=== PATIENT | male | born 1965 | race Caucasian/White ===

== ENCOUNTER 2018-02-26 02:20 | Observation (INO) | payer MEDICAID ==
[~2018-02-26] VITALS: Ht 190.5 cm; Wt 101.6 kg
--- NOTE | ~2018-02-26 | CN ---
PATIENT NAME:VIKTOR CLARKE JR MEDICAL RECORD: [id number] : 61 LOCATION:. D.2125 ADMIT DATE: 02/26/18 ACCOUNT: [id number] CONSULTING PHYSICIAN: DANIELLE BARNETT MD REFERRING PHYSICIAN: AGUSTINA WEATHERS MD DATE OF CONSULTATION: 02/26/2018 HISTORY OF PRESENT ILLNESS: A 52-year-old with a history of hypertension, apparently family history of coronary artery disease, presented to the ER with chest pain, shortness of breath, palpitations, started about 3 hours prior to admission. He drank a bottle of water that he felt might be tainted with drugs from his roommate, was positive for amphetamine in the ER. Cardiac enzymes are negative. Additionally, hypernatremic, hypokalemic. Enzymes continued to elevate. We are asked to see him concerning his cardiovascular status. PAST MEDICAL HISTORY: Includes: 1. History of hypertension. 2. Methamphetamine abuse. SOCIAL HISTORY: Denies current methamphetamine use. Smokes about a pack a day, fairly frequent alcohol. REVIEW OF SYSTEMS: The patient reports easy bruising but reports no swollen glands. The patient reports no fever, no night sweats, no significant weight gain, no significant weight loss. No significant exercise tolerance. The patient reports no dry eyes, no irritation, no vision change. Patient reports no difficulty hearing and no ear pain. Patient reports no frequent nose bleeds or nose and sinus problems. Patient reports on arm pain on exertion. No shortness of breath while lying down. No history of heart murmur. Patient reports no cough, no wheezing or coughing up blood. Patient reports no abdominal pain, no vomiting. Normal appetite. No diarrhea and not vomiting blood. No nausea and no constipation. Patient reports no incontinence. No difficulty urinating. No hematuria. No increased frequency. Patient reports no muscle aches. No weakness, no arthralgias, no back pain. No swelling of the extremities. Patient reports no abnormal mole, no jaundice, no rashes. Reports no loss of consciousness. No weakness and no numbness. No seizures, dizziness, or headaches. The patient reports no depression, no sleep disturbance, feeling safe in a relationship and no alcohol abuse. Patient reports on fatigue. Reports no runny nose or sinus pressure. No itching, no hives, and no frequent sneezing. ALLERGIES: None known. PHYSICAL EXAMINATION: GENERAL: Somewhat anxious appearing middle-aged gentleman. VITAL SIGNS: Pulse 128, blood pressure 154/99. HEENT: Normocephalic, atraumatic. NECK: No bruits noted. HEART: Tachycardic, regular, II/ systolic ejection murmur. LUNGS: Fairly good air excursion. ABDOMEN: Soft, nontender. EXTREMITIES: Pulses are 1+. There is no edema. IMPRESSION: Non-ST elevation myocardial infarction may be secondary to methamphetamine use. Given is hyperdynamic state, we will use beta blockers CONSULT REPORT [id number] VIKTOR CLARKE JR cautiously, benzodiazepines. PLAN: Angiography, intervention based on results, obviously would use a non-medicated hardware if indicated due to questionable compliance issues. TRANSINT:[id number] Voice Confirmation ID: [id number] DOCUMENT ID: [id number] DANIELLE BARNETT MD at 0829 CC: [id number] DICTATION DATE: 02/26/18 1052 SERVICER: 02/26/18 1310 DIS IN 02/26/18 [id number] [place] [address]
[2018-02-26] MEDS ORDERED: SINEQUAN100 MG PO (02:24)
[2018-02-26] MEDS ORDERED: MOBIC7.5 MG (02:24)
[2018-02-26] MEDS ORDERED: PRINIVIL10 MG (02:24)
[2018-02-26 02:49] LABS: BASOPHILS 0.3 % (0-2); EOSINOPHILS 0.1 % (0-7); HEMATOCRIT 39.7 % (42.0-54.0); HEMOGLOBIN 13.9 g/dL (13.5-17.5); IMMATURE GRANULOCYTES 0.2 % (0-5); LYMPHOCYTES 7.4 % (15-50); MCH 31.2 pg (26.0-34.0); MEAN PLATELET VOLUME 8.7 fL (7.4-10.4); MONOCYTES 6.2 % (2-11); NEUTROPHILS 85.8 % (40-80); PLATELET COUNT 300 10x3/uL (130-400); RBC 4.46 10x6/uL (4.20-6.10); RDW 13.3 % (11.5-14.5); WBC 14.6 10x3/uL (4.8-10.8)
[2018-02-26 02:58] LABS: ALBUMIN 4.2 g/dL (3.4-5.0); ALKALINE PHOSPHATASE 76 U/L (46-116); ALT (SGPT) 22 U/L (10-68); BILIRUBIN - TOTAL 0.37 mg/dL (0.2-1.3); CALC OSMOLALITY 287 mosm/kg (275-300); CALCIUM 8.6 mg/dL (8.5-10.1); CARBON DIOXIDE 23.6 mmol/L (21.0-32.0); CHLORIDE - SERUM 106 mmol/L (98-107); CREATININE - SERUM 1.5 mg/dL (0.6-1.3); GLUCOSE 135 mg/dL (74-106); POTASSIUM - SERUM 3.2 mmol/L (3.5-5.1); PROTEIN - SERUM 8.2 g/dL (6.4-8.2); SODIUM 142 mmol/L (136-145); UREA NITROGEN 21 mg/dL (7-18); eGFR NON AFRICAN AMERICAN 52 mL/min (90-120)
[2018-02-26 03:04] LABS: APPEARANCE CLEAR (CLEAR); BILIRUBIN NEGATIVE (NEGATIVE); GLUCOSE NEGATIVE (NEGATIVE); NITRITE NEGATIVE (NEGATIVE); PROTEIN NEGATIVE (NEGATIVE); UROBILINOGEN NORMAL (NORMAL)
[2018-02-26 03:07] LABS: UDS - BARB NEGATIVE QUAL (NEGATIVE); UDS - BENZO NEGATIVE QUAL (NEGATIVE); UDS - COCAINE NEGATIVE QUAL (NEGATIVE); UDS - OPIATE NEGATIVE QUAL (NEGATIVE); UDS - PCP NEGATIVE QUAL (NEGATIVE); UDS - THC NEGATIVE QUAL (NEGATIVE)
[2018-02-26 03:17] LABS: LIPASE 120 U/L (73-393); MAGNESIUM - SERUM 1.8 mg/dL (1.8-2.4); PRO BNP 142 pg/mL (0-125)
[2018-02-26 03:21] LABS: CREATINE KINASE 833 UL (21-232); TROPONIN-I 0.141 ng/mL (0.000-0.060)
[2018-02-26 03:22] LABS: CKMB 11.9 U/L (0.0-3.6)
[2018-02-26 04:08] LABS: COLOR YELLOW (YELLOW)
[2018-02-26 04:09] VITALS: BP 169/73
[2018-02-26 04:09] LABS: KETONE SMALL mg/dL (NEGATIVE)
[2018-02-26 04:10] LABS: BACTERIA NONE SEEN /hpf (NONE SEEN); RED CELLS - URINE 0-5 /hpf (0-5)
[2018-02-26 04:17] LABS: UDS - AMPHET POSITIVE QUAL (NEGATIVE)
[2018-02-26 04:39] VITALS: BP 153/100; Ht 190.5 cm; Wt 101.6 kg
[2018-02-26 08:37] VITALS: BP 154/99
[2018-02-26 09:51] LABS: ANION GAP 24.1 mmol/L (8-16); CALCIUM 8.9 mg/dL (8.5-10.1); CREATININE - SERUM 1.8 mg/dL (0.6-1.3); POTASSIUM - SERUM 3.6 mmol/L (3.5-5.1)
[2018-02-26 09:52] LABS: CARBON DIOXIDE 17.5 mmol/L (21.0-32.0)
[2018-02-26 11:16] VITALS: BP 145/91
== END 2018-02-26 18:35 | disposition left against medical advice (07) ==
LOC: D.ER 02:20 → D.M2 03:57 → OBSVTIME 04:25 → D.M2 18:35
PROVIDERS: Family Medicine; Internal Medicine Interventional Cardiology
DX: I21.4 Non-ST elevation (NSTEMI) myocardial infarction (principal); F15.10 Other stimulant abuse, uncomplicated; Z72.0 Tobacco use; I10 Essential (primary) hypertension; Z82.49 Family history of ischemic heart disease and other diseases of the circulatory system; E87.0 Hyperosmolality and hypernatremia; E87.6 Hypokalemia

== ENCOUNTER 2018-08-24 23:17 | Emergency (ER) | payer MEDICAID ==
[~2018-08-24] VITALS: Ht 190.5 cm; Wt 97.7 kg
[~2018-08-24 23:17] MED LIST: MOBIC7.5 MG; PRINIVIL10 MG; SINEQUAN100 MG PO
[2018-08-24 23:22] VITALS: Ht 190.5 cm; Wt 97.7 kg
[2018-08-24 23:39] LABS: BASOPHILS 0.4 % (0-2); EOSINOPHILS 1.2 % (0-7); HEMATOCRIT 36.4 % (42.0-54.0); HEMOGLOBIN 12.6 g/dL (13.5-17.5); IMMATURE GRANULOCYTES 0.2 % (0-5); MCH 30.3 pg (26.0-34.0); MCHC 34.6 g/dL (31.0-37.0); MCV 87.5 fL (80.0-100.0); MEAN PLATELET VOLUME 8.4 fL (7.4-10.4); MONOCYTES 8.5 % (2-11); NEUTROPHILS 74.7 % (40-80); PLATELET COUNT 331 10x3/uL (130-400); RBC 4.16 10x6/uL (4.20-6.10); RDW 13.2 % (11.5-14.5); WBC 9.3 10x3/uL (4.8-10.8)
[2018-08-24 23:46] LABS: APPEARANCE CLEAR (CLEAR); BILIRUBIN NEGATIVE (NEGATIVE); COLOR YELLOW (YELLOW); GLUCOSE NEGATIVE (NEGATIVE); KETONE NEGATIVE (NEGATIVE); NITRITE NEGATIVE (NEGATIVE); PROTEIN NEGATIVE (NEGATIVE); UROBILINOGEN NORMAL (NORMAL)
[2018-08-24 23:52] LABS: ALBUMIN 3.5 g/dL (3.4-5.0); ANION GAP 13.4 mmol/L (8-16); BILIRUBIN - TOTAL 0.41 mg/dL (0.2-1.3); CALCIUM 8.6 mg/dL (8.5-10.1); CARBON DIOXIDE 26.8 mmol/L (21.0-32.0); CREATININE - SERUM 1.3 mg/dL (0.6-1.3); POTASSIUM - SERUM 3.2 mmol/L (3.5-5.1); PROTEIN - SERUM 7.9 g/dL (6.4-8.2)
[2018-08-25] LABS: MAGNESIUM - SERUM 1.8 mg/dL (1.8-2.4)
[2018-08-25 00:22] LABS: UDS - AMPHET POSITIVE QUAL (NEGATIVE); UDS - BARB NEGATIVE QUAL (NEGATIVE); UDS - BENZO NEGATIVE QUAL (NEGATIVE); UDS - COCAINE NEGATIVE QUAL (NEGATIVE); UDS - OPIATE NEGATIVE QUAL (NEGATIVE); UDS - PCP NEGATIVE QUAL (NEGATIVE); UDS - THC NEGATIVE QUAL (NEGATIVE)
[2018-08-25 03:26] VITALS: BP 122/73
== END 2018-08-25 03:27 ==
LOC: D.ER 23:17
PROVIDERS: Emergency Medicine
DX: R45.851 Suicidal ideations (principal); F15.10 Other stimulant abuse, uncomplicated; F41.9 Anxiety disorder, unspecified; F32.9 Major depressive disorder, single episode, unspecified